=== PATIENT | male | born 1970 | race Caucasian/White ===

== ENCOUNTER 2020-11-04 14:23 | Emergency (ER) | payer OTHER, BC, SELFPAY ==
[2020-11-04 14:25] VITALS: BP 149/80; PULSE 79; RESP 18; TEMP 37.3; O2SAT 100; BMI 24.7
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
[2020-11-04 15:31] LABS: Add Manual Diff / Slide Review NO; Basophils Absolute Auto 100 /uL (0-100); Basophils Percent Auto 0.7 % (0-2); Eosinophils Absolute Auto 0 /uL (0-450); Eosinophils Percent Auto 0.4 % (2-4); Hematocrit 40.9 % (41-53); Lymphocytes Absolute Auto 1000 /uL (1100-4500); Lymphocytes Percent Auto 8.8 % (25-40); Mean Corpuscular HGB Conc 34.2 % (30-36); Mean Corpuscular Hemoglobin 30.3 PG (26-34); Mean Corpuscular Volume 88.7 fL (80-100); Monocytes Absolute Auto 400 /uL (0-900); Monocytes Percent Auto 3.7 % (3-14); Neutrophils Absolute Auto 10000 /uL (1500-7000); Neutrophils Percent Auto 86.4 % (50-75); Platelet Count 230 X10^3/uL (150-400); Red Blood Cell Count 4.61 X10^6/uL (4.5-5.9); Red Cell Distribution Width 12.3 % (11.6-14.8); White Blood Cell Count 11.5 X10^3/uL (4.5-11.0)
--- NOTE | 2020-11-04 15:41 | DI.CT.S_ITS ---
PROCEDURE: CT UE LT WO CON INDICATIONS: wrist fracture, prep for surgery TECHNIQUE: Noncontrast 1 mm axial sections acquired through the carpal bones, with coronal and sagittal reformats. COMPARISON: [facility], CR, XR WRIST LT MIN 3V, 11/04/2020, 14:57. [facility], CR, XR WRIST LT 2V, 11/04/2020, 16:40. FINDINGS: Image quality: Excellent. Bones: There is a comminuted fracture of the distal radius with articular extension to the radiocarpal and distal radioulnar joints. There is associated mild volar angulation. A comminuted fracture of the ulnar styloid is also demonstrated. Remaining visualized osseous structures appear intact. Soft tissues: There is extensive periarticular soft tissue swelling most prominent along the radial aspect of the wrist and distal forearm. Visualized flexor and extensor tendons appear intact. IMPRESSION: 1. Comminuted intra-articular fracture of the distal radius with mild volar angulation. 2. Comminuted fracture of the ulnar styloid. Dictated by: Leroy Crawford M.D. on 11/04/2020 at 16:50 Approved by: Leroy Crawford M.D. on 11/04/2020 at 16:52
[2020-11-04 15:42] LABS: Alanine Aminotransferase 29 IU/L (<50); Albumin 4.4 g/dL (3.5-5.0); Albumin Globulin Ratio 1.5 (1.0-2.8); Alkaline Phosphatase 54 U/L (38-126); Aspartate Aminotransferase 34 IU/L (17-59); BUN Creatinine Ratio 18.2 (6-22); Bilirubin Total 0.6 mg/dL (0.2-1.3); Blood Urea Nitrogen 14 mg/dL (9-20); Calcium 9.1 mg/dL (8.4-10.2); Carbon Dioxide 29 mmol/L (22-32); Chloride 101 mmol/L (98-107); Estimated Glomerular Filt Rate > 60.0 mL/min (>60); Globulin 2.9 g/dL (1.7-4.1); Glucose 107 mg/dL (70-100); HEMOLYSIS < 15 (0-50); Potassium 3.8 mmol/L (3.4-5.1); Sodium 134 mmol/L (137-145); Total Protein 7.3 g/dL (6.3-8.2)
[2020-11-04] MEDS: HYDROMORPHONE 0.5 MG INJ IV (15:59)
[2020-11-04 16:06] VITALS: BP 134/64; PULSE 82; RESP 16; O2SAT 98
[2020-11-04] MEDS: LIDOCAINE 2% INJ MDV 20 ML (16:27)
--- NOTE | 2020-11-04 16:37 | DI.RAD.S_ITS ---
PROCEDURE: XR WRIST LT 2V INDICATIONS: post reduction image TECHNIQUE: 2 views of the wrist were acquired. COMPARISON: [facility], , XR WRIST LT MIN 3V, 11/04/2020, 14:57. FINDINGS: Bones: Comminuted, intra-articular distal radius fracture and ulnar styloid process fracture redemonstrated. Radial fracture remains volarly displaced and angulated. Soft tissues: No suspicious soft tissue calcifications. IMPRESSION: Comminuted, intra-articular distal radius fracture. Dictated by: Enedina Paul MD, PhD on 11/04/2020 at 16:55 Approved by: Enedina Paul MD, PhD on 11/04/2020 at 16:56
[2020-11-04 17:32] VITALS: BP 136/62; PULSE 84; RESP 16; O2SAT 98
== END 2020-11-04 17:32 | disposition home or self-care (01) ==
PROVIDERS: Emergency Provider Nurse Practitioner Family
DX: S62.102A Fracture of unspecified carpal bone, left wrist, initial encounter for closed fracture (principal); V29.9XXA Motorcycle rider (driver) (passenger) injured in unspecified traffic accident, initial encounter
CPT/HCPCS: 25605; 29125; 73100; 73110; 73200; 80053; 85025; 99284; J1170

== ENCOUNTER → 2020-11-10 10:21 | Outpatient (CLI) | payer BC, OTHER, SELFPAY ==
[2020-11-10 11:13] LABS: COVID19 -Nasal RAPID Negative (Negative)
== END ==
PROVIDERS: Visit Provider Nurse Practitioner
DX: Z20.822 Contact with and (suspected) exposure to COVID-19 (principal)
CPT/HCPCS: 87635

== ENCOUNTER 2020-11-11 05:41 | Day surgery (SDC) | payer OTHER, BC, SELFPAY ==
[2020-11-11] VITALS (8 sets, daily range): BP systolic 114–123; BP diastolic 66–78; PULSE 58–78; RESP 7–16; TEMP 36.2–36.6; O2SAT 94–99; BMI 24.7
[2020-11-11] MEDS: LACTATED RINGERS 1,000 ML 42 ML IV (06:41)
--- NOTE | 2020-11-11 07:41 | PM.PREOP ---
Pre-operative Note COVID-19 COVID-19 status: Negative Interval Note History & Physical reviewed/Exam performed by Physician: Yes Changes to H&P: No
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
[2020-11-11] MEDS: CEFAZOLIN 2 GM/100 ML FROZ.PIGGY IV (07:45)
--- NOTE | 2020-11-11 08:18 | SUR.OPER ---
Supine on padded OR bed, head on pillow, right arm secured on padded arm boards at <90 degrees abduction, left arm draped free on black arm table, legs uncrossed, safety belt at thigh, tape over blanket over lower legs.
[2020-11-11] MEDS: BUPIVACAINE 0.5% (PF) VIAL 30 ML INJ (08:33)
[2020-11-11] MEDS: OXYCODONE/ACETAMINOPHEN 5/325 TABLET 1 TAB PO ×2 (11:20→11:56)
--- NOTE | 2020-11-11 11:32 | SUR.PHASEI ---
Slow to wake up, medicated for pain with percocet after applesauce tolerated.
[2020-11-11] MEDS: ONDANSETRON 4 MG/2 ML INJ IV (11:56)
== END 2020-11-11 12:30 | disposition home or self-care (01) ==
PROVIDERS: PCP Internal Medicine; Referring Provider Orthopaedic Surgery; Visit Provider Orthopaedic Surgery
PROC: (CPT 25609; principal; 2020-11-11 07:45)
DX: S52.572A Other intraarticular fracture of lower end of left radius, initial encounter for closed fracture (principal); S52.692A Other fracture of lower end of left ulna, initial encounter for closed fracture; V29.9XXA Motorcycle rider (driver) (passenger) injured in unspecified traffic accident, initial encounter
CPT/HCPCS: 25609; J0690; J1100; J1170; J2250; J2405; J2704; J3010